=== PATIENT | female | born 1995 | race Caucasian/White ===

== ENCOUNTER 2019-07-06 03:37 | Emergency (ER) | payer OTHER ==
[2019-07-06] MEDS ORDERED: NORMAL SALINE 1000 ML 1,000 ML IV ONE (04:39)
[2019-07-06] MEDS ORDERED: KETOROLAC TROMETHAMINE INJ/PF 30 MG/1 ML SDV IV ONE (04:40)
[2019-07-06 04:53] LABS: APPEARANCE,URINE SLIGHTLY-CLOUDY; BILIRUBIN,URINE NEGATIVE (NEGATIVE); CALCIUM OXALATE CRYSTALS,URINE TOO NUMEROUS TO CNT /HPF; GLUCOSE, URINE NEGATIVE (NEGATIVE); KETONES,URINE NEGATIVE (NEGATIVE); LEUKOCYTE ESTERASE,URINE TRACE (NEGATIVE); NITRITE,URINE POSITIVE (NEGATIVE); PROTEIN,URINE 100 mg/dL (NEGATIVE); URINE SPECIFIC GRAVITY 1.014
[2019-07-06 04:54] LABS: COLOR,URINE DARK YELLOW
--- NOTE | 2019-07-06 04:56 | ER Document Report ---
ED General - General Chief Complaint: Urinary Problem Stated Complaint: LOWER BACK PAIN Time Seen by Provider: 07/06/19 04:21 TRAVEL OUTSIDE OF THE [place] IN LAST 30 DAYS: No - HPI Notes: This is a 23-year-old female who presents today with a complaint of right flank pain since yesterday. Patient also describes urinary frequency, urgency and dysuria. Patient states that she was seen at another facility yesterday morning and diagnosed with a urinary tract infection. She was put on Macrobid and Pyridium. She has had 1 day of Macrobid. She states is not getting better. She states that her pain got worse tonight and he feels like a kidney stone pain. That prompted her to come to the emergency department. She denies any fever or chills. She denies any nausea or vomiting. She denies any anterior abdominal pain. She describes her symptoms as moderate. There are no obvious aggravating factors. - Related Data Allergies/Adverse Reactions: No Known Allergies Allergy (Unverified 07/06/19 03:52) Past Medical History - Social History Smoking Status: Never Smoker Chew tobacco use (# tins/day): No Frequency of alcohol use: Occasional Family History: Reviewed & Not Pertinent Patient has suicidal ideation: No Patient has homicidal ideation: No Review of Systems - Review of Systems Constitutional: denies: Fever Cardiovascular: denies: Chest pain, Palpitations Gastrointestinal: denies: Abdominal pain, Nausea, Vomiting Genitourinary: Burning, Dysuria, Frequency, Flank pain, Urgency Neurological/Psychological: denies: Headaches -: Yes All other systems reviewed and negative Physical Exam - Vital signs Vitals: Temp Pulse Resp BP Pulse Ox 98.1 F 71 20 119/69 100 07/06/19 03:44 07/06/19 03:44 07/06/19 03:44 07/06/19 03:44 07/06/19 03:44 - General General appearance: Appears well, Alert - Respiratory Respiratory status: No respiratory distress Chest status: Nontender Breath sounds: Normal Chest palpation: Normal - Cardiovascular Rhythm: Regular Heart sounds: Normal auscultation Murmur: No - Abdominal Inspection: Normal - There is no anterior abdominal tenderness. Distension: No distension Bowel sounds: Normal Tenderness: Nontender Organomegaly: No organomegaly - Back Back: Normal, Nontender, CVA tenderness - There is right CVA tenderness. - Neurological Neuro grossly intact: Yes Cognition: Normal Orientation: AAOx4 [place] Coma Scale Eye Opening: Spontaneous [place] Coma Scale Verbal: Oriented [place] Coma Scale Motor: Obeys Commands [place] Coma Scale Total: 15 Speech: Normal Motor strength normal: LUE, RUE, LLE, RLE Sensory: Normal - Psychological Associated symptoms: Normal affect, Normal mood - Skin Skin Temperature: Warm Skin Moisture: Dry Skin Color: Normal Course - Re-evaluation Re-evalutation: 07/06/19 04:58 Differential diagnosis includes UTI versus renal colic versus sacroiliitis. 07/06/19 05:55 Patient reevaluated. Patient feels better. Labs reviewed. Awaiting CT scan. 07/06/19 06:42 Patient's care discussed with Dr. Rogers and signed out to him. He will follow- up in the CT scan. Anticipate discharge. - Vital Signs Vital signs: Temp Pulse Resp BP Pulse Ox 98.1 F 71 20 119/69 100 07/06/19 03:44 07/06/19 03:44 07/06/19 03:44 07/06/19 03:44 07/06/19 03:44 - Laboratory Result Diagrams: 07/06/19 05:08 07/06/19 05:08 Laboratory results interpreted by me: 07/06/19 07/06/19 03:55 05:08 Lymph % (Auto) 12.2 L Seg Neutrophils % 78.9 H Urine Protein 100 H Urine Blood LARGE H Urine Nitrite POSITIVE H Urine Urobilinogen 4.0 H Ur Leukocyte Esterase TRACE H Discharge - Discharge Clinical Impression: Acute UTI, Flank pain Condition: Stable Disposition: OTHER
[2019-07-06 05:19] LABS: ABSOLUTE MONOCYTES (AUTO) 0.7 10^3/uL (0.1-1.4); ABSOLUTE NEUT (AUTO) 6.7 10^3/uL (1.7-8.2); BASOPHILS % (AUTO) 0.4 % (0-2); EOSINOPHILS % (AUTO) 0.6 % (0-6); HEMATOCRIT 41.4 % (36.0-47.0); HEMOGLOBIN 14.8 g/dL (12.0-15.5); LYMPHOCYTES % (AUTO) 12.2 % (13-45); MEAN CORPUSCULAR HEMOGLOBIN 31.5 pg (27.0-33.4); MEAN CORPUSCULAR HGB CONC 35.7 g/dL (32.0-36.0); MEAN CORPUSCULAR VOLUME 88 fl (80-97); MONOCYTES % (AUTO) 7.9 % (3-13); PLATELET COUNT 209 10^3/uL (150-450); RED BLOOD COUNT 4.69 10^6/uL (3.72-5.28); RED CELL DISTRIBUTION WIDTH 12.3 % (11.5-14.0); SEGMENTED NEUTROPHILS % (AUTO) 78.9 % (42-78); TOTAL CELLS COUNTED % (AUTO) 100 %; WHITE BLOOD COUNT 8.5 10^3/uL (4.0-10.5)
[2019-07-06 05:40] LABS: ANION GAP 10 (5-19); BLOOD UREA NITROGEN 8 mg/dL (7-20); CALCIUM 9.5 mg/dL (8.4-10.2); CARBON DIOXIDE 26 mmol/L (22-30); CHLORIDE 103 mmol/L (98-107); GLUCOSE 105 mg/dL (75-110); POTASSIUM 3.8 mmol/L (3.6-5.0)
--- NOTE | 2019-07-06 07:31 | RADIOLOGY REPORT (SQ) ---
EXAM: CT abdomen and pelvis without intravenous contrast CLINICAL DATA: 23-year-old female with flank pain, questionable renal colic TECHNICAL DATA: Axial CT imaging of the abdomen and pelvis was performed. Sagittal and coronal reconstructed images were then performed. The CT study is performed according to ALARA (as low as reasonably achievable) or ALARA/IMAGE GENTLY, with automatic adjustment of mA and/or kV according to patient size. Performed on: 07/06/2019 at 5:55 AM Comparison: None. FINDINGS: Lung bases: The lung bases are clear. Liver:The liver is normal in size and configuration. No focal hepatic abnormalities are appreciated on this unenhanced scan. Liver attenuation is within normal limits. Spleen:The spleen is normal is size, configuration and attenuation. No focal splenic abnormalities are appreciated on this unenhanced scan. Gallbladder and bile duct: The gallbladder is well distended and unremarkable. There is no biliary ductal dilatation. Pancreas: The pancreas is grossly normal in size and configuration. Adrenal Glands:The adrenal glands are normal in size and configuration. Kidneys:The kidneys are normal in size and configuration. There is no evidence of hydronephrosis. There is a punctate nonobstructing no definite ureteral calcifications are identified. Right-sided nephrolithiasis. No focal renal abnormalities are identified. Stomach:The stomach is grossly normal. There is no definite hiatal hernia. Bowel:The bowel gas pattern is non specific and non obstructive. Appendix: The appendix is normal. Free air:There is no evidence of free air. Free fluid: There is no evidence of free fluid. Vasculature: The aorta is normal in caliber and contour. The inferior vena cava is grossly unremarkable. Lymphadenopathy: No pathologic lymphadenopathy is identified. Bladder: The bladder is well distended and smooth in contour. Reproductive: The uterus is grossly within normal limits. Bones: No acute osseous abnormalities are identified. Soft tissues: No focal soft tissue abnormalities are identified. IMPRESSION: 1. Punctate nonobstructing right nephrolithiasis. There is no evidence of urinary tract obstruction. 2. Otherwise, unremarkable unenhanced CT scan of the abdomen and pelvis.
--- NOTE | 2019-07-06 08:21 | ER Document Report ---
Doctor's Note Notes: 07/06/19 08:20 I reviewed the patient's lab work and CT findings with her. We had a long talk about her excessive level of calcium oxalate crystals in her urine and risks for kidney stones. As we were discussing foods and fluids to avoid, it turns out that she has been consuming excessive amounts of tea, and spinach recently in an attempt to live and eat healthy. I advised her to investigate the foods to avoid and foods to consume to reduce her risk of forming additional kidney stone.
[2019-07-06 08:34] VITALS: BP 102/64
== END 2019-07-06 08:34 | disposition home or self-care (01) ==
LOC: ER 03:37
DX: N39.0 Urinary tract infection, site not specified (principal); R10.9 Unspecified abdominal pain; M54.9 Dorsalgia, unspecified
CPT/HCPCS: 36415; 87086; 85025; 81025; 87088; 80048; 81001; 74176; J1885; J7030; 87186; 96361; 96374; 99284